=== PATIENT | male | born 1975 | race Two or more races ===

== ENCOUNTER 2020-03-27 10:16 | Emergency (ER) | payer BC, OTHER ==
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
[2020-03-27] MEDS ORDERED: Sodium Chloride 0.9% 1,000 ML IV ONE ×2 (10:27→12:26)
[2020-03-27] MEDS ORDERED: Sodium Chloride 0.9% 2.5 ML Syringe FLUSH PRN (10:27)
[2020-03-27] MEDS ORDERED: Morphine 4 MG/ML Syringe IVPUSH ONE (10:27)
[2020-03-27] MEDS ORDERED: Ondansetron 4 MG/2 ML SDV IVPUSH ONE (10:29)
[2020-03-27] MEDS: Sodium Chloride 0.9% 10 ML Syringe FLUSH PRN ×2 (10:37→10:43)
[2020-03-27 10:53] LABS: CARBON DIOXIDE,CO2 26.2 mmol/L (21.0-32.0); POTASSIUM,K 3.7 mmol/L (3.5-5.1)
[2020-03-27] MEDS ORDERED: HYDROmorphone 1 MG/ML Syringe IVPUSH ONE ×2 (10:59→11:35)
[2020-03-27] MEDS ORDERED: Iopamidol 755 MG/ML 500 ML Multipack Bottle IVPUSH STA (11:36)
--- NOTE | 2020-03-27 12:25 | CT ---
INDICATION: Right lower quadrant pain, nausea and vomiting TECHNIQUE: Volumetric helical scanning of the abdomen and pelvis was performed with 100 cc of Isovue 370 contrast material IV. Coronal and sagittal reconstructions were obtained. COMPARISON: None. FINDINGS: Acutely obstructing 3 mm stone is present at the right ureterovesical junction. Mild right hydroureter and hydronephrosis is noted lung with periureteral and perinephric stranding. A 2 mm stone is present in the inferior left renal collecting system. The kidneys are otherwise unremarkable. The bladder is grossly negative. The prostate is moderately enlarged. A normal appendix noted. The bowel is otherwise unremarkable except for a small hiatal hernia. The liver is normal in size, shape and attenuation. No bile duct dilation is evident. The spleen is within normal limits. The adrenal glands are unremarkable. The pancreas is within normal limits. No lymphadenopathy is evident. No free fluid is evident. The lung bases are clear. The heart is normal in size. IMPRESSION: 1. Acutely obstructing 3 mm right UVJ stone. 2. 2 mm left renal collecting system stone. 3. Moderate prostate enlargement. 4. Small hiatal hernia. Please note that all CT scans at this facility use dose modulation, iterative reconstruction, and/or weight-based dosing when appropriate to reduce radiation dose to as low as reasonably achievable. Dictated by Luca Finney MD @ Mar 27 2020 12:07PM Signed by Dr. Luca Finney @ Mar 27 2020 12:24PM
== END 2020-03-27 13:35 | disposition home or self-care (01) ==
LOC: MW.ED 10:16
DX: N13.2 Hydronephrosis with renal and ureteral calculous obstruction (principal); Z20.822 Contact with and (suspected) exposure to COVID-19
CPT/HCPCS: 36415; 74177; 80053; 81001; 83605; 83690; 83735; 85025; 87635; 96374; 96375; 96376; 99284; J1170; J2270; J2405; J7030; Q9967; U0002